=== PATIENT | male | born 1970 | race Caucasian/White ===

== ENCOUNTER → 2021-11-21 | Emergency (ER) | payer OTHER ==
[2021-11-21 14:05] VITALS: BP 128/75; PULSE 68; O2SAT 94
== END | disposition left against medical advice (07) ==
LOC: ED 13:50
DX: Z53.21 Procedure and treatment not carried out due to patient leaving prior to being seen by health care provider (principal)
CPT/HCPCS: 99283; G0463

== ENCOUNTER 2024-11-07 00:46 | Observation (INO) | payer OTHER ==
[2024-11-07] MEDS: TORAdol 30 mg Injection IM ONE (00:58)
--- NOTE | 2024-11-07 01:07 | ERPHSYRPT ---
- History of Present Illness Time Seen by Provider: 11/07/24 00:53 Source: patient, EMS Exam Limitations: no limitations Physician History: 54-year-old male with history of anxiety/depression, not taking any medications presented to the ER after tripped in his porch and fell on the left hip/femur with a popping sensation and patient reports he is pretty sure it is a femur fracture. Reports sharp shooting pain in the mid femur with minimal movements at the left hip and knee area. No numbness or tingling in the foot. Denies hitting his head. No loss of consciousness. Denies any chest pain, abdominal pain nausea vomiting. No injury anywhere else reported. Patient is not very cooperative and cursing at this MD and RN were trying to help him Allergies/Adverse Reactions: Penicillins Allergy (Verified 11/07/24 01:27) Hx Tetanus, Diphtheria Vaccination/Date Given: No Hx Influenza Vaccination/Date Given: No Hx Pneumococcal Vaccination/Date Given: No - Review of Systems Constitutional: No Symptoms Ears, Nose, & Throat: No Symptoms Respiratory: No Symptoms Cardiac: No Symptoms Abdominal/Gastrointestinal: No Symptoms Genitourinary Symptoms: No Symptoms Musculoskeletal: Fall, Injury, Joint Swelling Skin: No Symptoms Neurological: No Symptoms Psychological: Anxiety, Depression Hematologic/Lymphatic: No Symptoms Immunological/Allergic: No Symptoms - Past Medical History Pertinent Past Medical History: Yes Respiratory History: Sleep Apnea Musculoskeletal History: Fractures GI Medical History: Irritable Bowel Psycho-Social History: Anxiety, Depression Other Medical History: PTSD - Past Surgical History Past Surgical History: Yes Respiratory: Chest Surgery, Other Musculoskeletal: Orthopedic Surgery, Other Other Surgical History: carpal tunnel hung hands, left elbow, left tib/fib, left knee x 4, left ankle, right knee x 3. - Social History Smoking Status: Current every day smoker How long have you smoked: 30 Exposure to second hand smoke: No Drug Use: none Patient Lives Alone: Yes - Nursing Vital Signs Nursing Vital Signs: Initial Vital Signs Temperature 98.5 F 11/07/24 01:32 Pulse Rate 82 11/07/24 01:32 Respiratory Rate 18 11/07/24 01:32 Blood Pressure 118/72 11/07/24 01:32 O2 Sat by Pulse Oximetry 98 11/07/24 01:32 Pain Scale Pain Intensity 7 - Physical Exam General Appearance: no apparent distress Eyes, Ears, Nose, Throat Exam: normal ENT inspection Neck Exam: normal inspection, non-tender, supple, full range of motion Cardiovascular/Respiratory Exam: chest non-tender, normal breath sounds, regular rate/rhythm Gastrointestinal/Abdominal Exam: non-tender, soft, no organomegaly Hips Exam: right: non-tender, normal inspection, normal range of motion, no evidence of injury, left: bone tenderness, pain, soft tissue tenderness Legs Exam: left leg: pain, soft tissue tenderness, swelling Knees Exam: bilateral knee: non-tender, normal inspection, normal range of motion, no evidence of injury Neuro/Tendon Exam: normal sensation, normal motor functions Mental Status Exam: alert, oriented x 3, uncooperative Skin Exam: normal color SpO2 Interpretation: normal SpO2: 96 O2 Delivery: Room Air Ordered Tests: Medication Summary Discontinued Medications Generic Name Dose Route Start Last Admin Trade Name Freq PRN Reason Stop Dose Admin Acetaminophen 1,000 mg 11/07/24 10:22 11/07/24 11:01 Acetaminophen 500 Mg Tablet PO 11/07/24 10:23 1,000 mg STAT ONE Administration Acetaminophen 650 mg 11/08/24 14:08 Acetaminophen 325 Mg Tablet PO 12/08/24 14:07 Q6HPRN PRN POST OP PAIN Hydrocodone Bitart/Acetaminophen 1 tablet 11/07/24 05:19 11/09/24 15:51 Hydrocodone/Acetamin 10-325 Mg Tablet PO 11/12/24 05:18 1 tablet Q4H PRN PRN Administration PAIN Aspirin 81 mg 11/08/24 10:00 11/08/24 10:25 Aspirin 81 Mg Tablet.Ec PO 12/08/24 09:59 81 mg DAILY LAST Administration Aspirin 325 mg 11/09/24 10:00 11/09/24 09:38 Aspirin 325 Mg Tablet.Ec PO 12/09/24 09:59 325 mg DAILY LAST Administration Bupivacaine HCl Confirm 11/07/24 13:40 Bupivacaine Hcl/Pf 150 Mg/30 Ml Vial Administered 11/07/24 13:41 Dose 150 mg .ROUTE .STK-MED ONE Bupivacaine HCl/Epinephrine Bitart 50 ml 11/07/24 03:48 Bupivacaine Hcl/Epinephrine/Pf 10 Ml Vial SUBDERMAL 11/07/24 03:49 .STK-MED ONE Bupivacaine Liposome Confirm 11/07/24 13:41 Bupivacaine Liposome/Pf 133 Mg/10 Ml Administered 11/07/24 13:42 Dose 133 mg IJ .STK-MED ONE Celecoxib 200 mg 11/07/24 10:23 11/07/24 10:59 Celecoxib 100 Mg Capsule PO 11/07/24 10:24 200 mg STAT ONE Administration Dexamethasone 8 mg 11/07/24 10:22 11/07/24 10:59 Dexamethasone 4 Mg Tablet PO 11/07/24 10:23 8 mg STAT ONE Administration Dexamethasone Sodium Phosphate Confirm 11/07/24 13:43 Dexamethasone Sodium Phosphate 4 Mg/Ml Vial Administered 11/07/24 13:44 Dose 4 mg .ROUTE .STK-MED ONE Dexmedetomidine/Sodium Chloride Confirm 11/07/24 13:43 Dexmedetomidine In 0.9 % Nacl 80 Mcg/20 Ml Vial Administered 11/07/24 13:44 Dose 80 mcg IV .STK-MED ONE Ephedrine Sulfate Confirm 11/07/24 14:13 Ephedrine Sulfate 50 Mg/Ml Administered 11/07/24 14:14 Dose 50 mg .ROUTE .STK-MED ONE Famotidine 20 mg 11/07/24 10:23 11/07/24 11:00 Famotidine 20 Mg Tablet PO 11/07/24 10:24 20 mg STAT ONE Administration Fentanyl Citrate Confirm 11/07/24 13:43 Fentanyl Citrate 100 Mcg/2 Ml* Vial Administered 11/07/24 13:44 Dose 100 mcg .ROUTE .STK-MED ONE Fentanyl Citrate Confirm 11/07/24 14:35 Fentanyl Citrate 100 Mcg/2 Ml* Vial Administered 11/07/24 14:36 Dose 100 mcg .ROUTE .STK-MED ONE Fentanyl Citrate Confirm 11/07/24 17:56 Fentanyl Citrate 100 Mcg/2 Ml* Vial Administered 11/07/24 17:57 Dose 100 mcg .ROUTE .STK-MED ONE Gabapentin 600 mg 11/07/24 10:22 11/07/24 10:59 Gabapentin 300 Mg Capsule PO 11/07/24 10:23 600 mg STAT ONE Administration Heparin Sodium (Beef Lung) 5,000 unit 11/07/24 06:00 11/07/24 09:17 Heparin 5000 Units/0.5 Ml 5,000 Unit/0.5 Ml Syr SQ 12/07/24 05:59 Not Given Q8HT LAST Sodium Chloride 1,000 mls @ 999 mls/hr 11/07/24 00:53 11/07/24 03:06 Sodium Chloride 0.9% 1000 Ml IV 11/07/24 01:53 Infused .Q1H1M STA Infusion Sodium Chloride Confirm 11/07/24 01:54 Sodium Chloride 0.9% 1000 Ml Administered 11/07/24 01:55 Dose 1,000 mls @ ud .ROUTE .STK-MED ONE Doxycycline Hyclate 100 mg/ 100 mls @ 100 mls/hr 11/07/24 22:00 11/09/24 09:39 Dextrose IV 12/07/24 21:59 100 mls/hr Q12HT LAST Administration Lactated Ringer's 1,000 mls @ 0 mls/hr 11/07/24 10:30 Lactated Ringers IV 12/07/24 10:29 .Q0M LAST KVO Vancomycin HCl 1 gm in 200 mls @ 200 mls/hr 11/07/24 12:35 11/07/24 12:37 Vancomycin 1 Gram/200 Ml Bag IV 11/07/24 13:34 200 mls/hr ONCALLTOOR ONE Administration Lactated Ringer's Confirm 11/07/24 15:05 Lactated Ringers Administered 11/07/24 15:06 Dose 1,000 mls @ ud IV .STK-MED ONE Vancomycin HCl 1 gm in 200 mls @ 200 mls/hr 11/08/24 08:15 11/08/24 08:10 Vancomycin 1 Gram/200 Ml Bag IV 11/08/24 09:14 200 mls/hr ONCE ONE Administration Dextrose Confirm 11/08/24 10:17 D5w 100ml Mini Bag 100 Ml Administered 11/08/24 10:18 Dose 100 mls @ ud IV .STK-MED ONE Ibuprofen 600 mg 11/08/24 14:08 Ibuprofen 600 Mg Tablet PO 12/08/24 14:07 Q6HPRN PRN POST OP PAIN Ketamine HCl Confirm 11/07/24 14:36 Ketamine Hcl 50 Mg/Ml Administered 11/07/24 14:37 Dose 50 mg .ROUTE .STK-MED ONE Ketorolac Tromethamine Confirm 11/07/24 01:15 Ketorolac Tromethamine 30 Mg/Ml Inj Administered 11/07/24 01:16 Dose 30 mg .ROUTE .STK-MED ONE Ketorolac Tromethamine 30 mg 11/07/24 02:45 11/07/24 00:58 Ketorolac Tromethamine 30 Mg/Ml Inj IM 11/07/24 02:46 30 mg STAT ONE Administration Ketorolac Tromethamine 30 mg 11/07/24 05:19 11/07/24 05:41 Ketorolac Tromethamine 30 Mg/Ml Inj IV 30 mg Q6H PRN PRN Administration PAIN Ketorolac Tromethamine 30 mg 11/09/24 01:54 11/09/24 02:01 Ketorolac Tromethamine 30 Mg/Ml Inj IV 11/09/24 01:55 30 mg STAT ONE Administration Lidocaine HCl Confirm 11/07/24 13:41 Lidocaine Hcl 4 Ml Solution (Lta Kit) Administered 11/07/24 13:42 Dose 4 ml TP .STK-MED ONE Lidocaine HCl Confirm 11/07/24 13:43 Lidocaine - Mpf 2% 5 Ml Vial Administered 11/07/24 13:44 Dose 5 ml .ROUTE .STK-MED ONE Midazolam HCl Confirm 11/07/24 13:43 Midazolam Hcl 2 Mg/2 Ml Vial Administered 11/07/24 13:44 Dose 2 mg .ROUTE .STK-MED ONE Morphine Sulfate 4 mg 11/07/24 00:53 11/07/24 01:53 Morphine Sulfate 4 Mg/Ml Injection IV 11/07/24 00:54 Not Given STAT ONE Morphine Sulfate 4 mg 11/07/24 05:18 11/09/24 12:37 Morphine Sulfate 4 Mg/Ml Injection IV 11/12/24 05:17 4 mg Q4H PRN PRN Administration SEVERE PAIN Naloxone HCl 0.4 mg 11/08/24 07:35 Naloxone Hcl 0.4 Mg/Ml Ml IV 12/08/24 07:34 PRN PRN RESPIRATORY DEPRESSION Ondansetron HCl 4 mg 11/07/24 00:53 11/07/24 02:01 Ondansetron Hcl 4 Mg/2 Ml Vial IV 11/07/24 00:54 Not Given STAT ONE Ondansetron HCl Confirm 11/07/24 01:54 Ondansetron Hcl 4 Mg/2 Ml Vial Administered 11/07/24 01:55 Dose 4 mg .ROUTE .STK-MED ONE Ondansetron HCl Confirm 11/07/24 13:43 Ondansetron Hcl 4 Mg/2 Ml Vial Administered 11/07/24 13:44 Dose 4 mg .ROUTE .STK-MED ONE Ondansetron HCl Confirm 11/07/24 17:55 Ondansetron Hcl 4 Mg/2 Ml Vial Administered 11/07/24 17:56 Dose 4 mg .ROUTE .STK-MED ONE Phenylephrine HCl Confirm 11/07/24 14:23 Phenylephrine 10 Mg/Ml Vial Administered 11/07/24 14:24 Dose 10 mg .ROUTE .STK-MED ONE Potassium Chloride 40 meq 11/09/24 07:37 11/09/24 08:31 Potassium Chloride Tab 10 Meq Tab PO 11/09/24 07:38 40 meq STAT ONE Administration Prochlorperazine Edisylate 10 mg 11/07/24 09:54 11/09/24 12:45 Prochlorperazine Edisylate 10 Mg/2 Ml Vial IV 12/07/24 09:53 10 mg Q6H PRN PRN Administration NAUSEA/VOMITING Propofol Confirm 11/07/24 13:44 Propofol 200 Mg/20 Ml Vial Administered 11/07/24 13:45 Dose 200 mg IV .STK-MED ONE Rocuronium [place] Confirm 11/07/24 13:43 Rocuronium [place] 50 Mg/5 Ml Vial Administered 11/07/24 13:44 Dose 50 mg IV .STK-MED ONE Sugammadex Sodium Confirm 11/07/24 13:43 Sugammadex Sodium 200 Mg/2 Ml Vial Administered 11/07/24 13:44 Dose 200 mg IV .STK-MED ONE Temazepam 15 mg 11/08/24 20:55 11/08/24 21:08 Temazepam 15 Mg Capsule PO 12/08/24 20:54 15 mg HS PRN PRN Administration INSOMNIA Lab/Rad Data: Laboratory Result Diagrams 11/07/24 02:10 11/07/24 02:10 Laboratory Results 11/07/24 11/07/24 Range/Units 02:10 02:10 WBC 17.2 H (4.23-9.07) x10^3/uL RBC 4.08 L (4.63-6.08) x10^6/uL Hgb 13.2 L (13.7-17.5) g/dL Hct 39.0 L (40.1-51.0) % MCV 95.6 H (79.0-92.2) fL MCH 32.4 H (25.7-32.2) pg MCHC 33.8 (32.3-36.5) g/dL RDW 12.7 (11.6-14.4) % Plt Count 256 (163-337) x10^3/uL MPV 10.3 (9.4-12.4) fL Gran % 85.5 H (34.0-67.9) % Immature Gran % (Auto) 0.3 (0.001-0.429) % Nucleat RBC Rel Count 0.0 (0.00-0.2) % Eos # (Auto) 0.06 (0.04-0.54) x10^3/uL Immature Gran # (Auto) 0.06 H (0.001-0.031) x10^3u/L Absolute Lymphs (auto) 1.27 L (1.32-3.57) x10^3/uL Absolute Monos (auto) 1.06 H (0.30-0.82) x10^3/uL Absolute Nucleated RBC 0.00 (0.00-0.012) x10^3u/L Lymphocytes % 7.4 L (21.8-53.1) % Monocytes % 6.2 (5.3-12.2) % Eosinophils % 0.3 L (0.8-7.0) % Basophils % 0.3 (0.2-1.2) % Absolute Granulocytes 14.70 H (1.78-5.38) x10^3/uL Basophils # 0.05 (0.01-0.08) x10^3/uL Sodium 143 (135-145) mmol/L Potassium 3.6 (3.5-5.1) mmol/L Chloride 109 H (98-107) mmol/L Carbon Dioxide 20 L (22-30) mmol/L Anion Gap 16.7 H (5-15) MEQ/L BUN 15 (9-20) mg/dL Creatinine 0.74 (0.66-1.25) mg/dL Estimated GFR 107.0 ML/MIN Glucose 94 (74-106) mg/dL Calcium 8.9 (8.4-10.2) mg/dL Total Bilirubin 0.50 (0.2-1.3) mg/dL AST 52 (17-59) U/L ALT 29 (0-50) U/L Alkaline Phosphatase 71 (38-126) U/L Serum Total Protein 6.4 (6.3-8.2) g/dL Albumin 4.1 (3.5-5.0) g/dL Ethyl Alcohol 70 H (0-10) mg/dL - Progress Progress: pain not gone completely Progress Note: 11/07/24 02:01 54-year-old is evaluated in the ER for ground-level fall with injuries of the left hip and femur. Patient has intact distal neurovascular, no shortening or rotation, extremely painful movements at the left hip and proximal femur area. He is offered narcotics but patient does not want anything except Toradol. X-rays of right femur/hip showed spiral fracture from greater trochanteric reviewed by me with pending official reports. I have shared the x-ray imaging with Dr. Mijares orthopedickee on-call, recommended obtaining CT and admission to the hospitalist service. Will obtain baseline lab work. Patient has no injury anywhere else, discussed with Dr. Gayle washington, reviewed history, workup and agreed with admission. Complexity of problems addressed: High acuity Complexity of data reviewed/analyzed: Extensive Risk of complication: High risk Discussed with Dr.: Other (Dr. Clarence Mijares orthopedics and Dr. Araujo hospitalist) Counseled pt/family regarding: lab results, diagnosis, need for follow-up, rad results Medical Desision Making - Independent Historian Additional History obtained from: Bun Panner/EMT - Discussion of managment Care discussed with:: specialist Reviewed:: Test results, Need for additional workup Agreed on:: Treatment plan, place in obs Will see patient: in hospital - Diagnostic Testing Diagnostic test were ordered, analyzed, and reviewed by me: Yes Radiological Interpretation: Interpreted by me, Reviewed by me, Teleradiologist Report - Risk of complications The pt has a mod risk of morbidity or mortality based on: Need for prescription drug management The pt has a high risk of morbidity or mortality based on: Need for major surgery in patient with known risk factors, Decision regarding hospitilization or escalation of hosp level of care - Departure Departure Disposition: Observation Clinical Impression: Fracture, proximal femur Fall Qualifiers: Encounter type: initial encounter Qualified Code(s): W19.XXXA - Unspecified fall, initial encounter Condition: Stable Critical Care Time: No
[2024-11-07] MEDS ORDERED: TORAdol 30 mg Injection ONE (01:15)
[2024-11-07] MEDS: MORPHINE SULFATE 4 MG INJ IV ONE (01:53)
[2024-11-07] MEDS ORDERED: Zofran 4 MG/2 ML VIAL ONE ×3 (01:54→17:55)
[2024-11-07] MEDS ORDERED: Sodium Chloride 0.9% 1000 ML 1,000 ML ONE (01:54)
[2024-11-07] MEDS: Sodium Chloride 0.9% 1000 ML 1,000 ML IV STA (01:57)
[2024-11-07] MEDS: Zofran 4 MG/2 ML VIAL IV ONE (02:01)
[2024-11-07 02:15] LABS: BASOPHIL % 0.3 % (0.2-1.2); Basophil (Absolute #) 0.05 x10^3/uL (0.01-0.08); Eosinophil % 0.3 % (0.8-7.0); Eosinophil (Absolute #) 0.06 x10^3/uL (0.04-0.54); Hemoglobin 13.2 g/dL (13.7-17.5); IMMATURE GRAN # 0.06 x10^3u/L (0.001-0.031); IMMATURE GRAN % 0.3 % (0.001-0.429); Lymphocyte (Absolute #) 1.27 x10^3/uL (1.32-3.57); Lymphocytes % 7.4 % (21.8-53.1); Mean Cell Volume 95.6 fL (79.0-92.2); Mean Corpuscular Hemoglobin 32.4 pg (25.7-32.2); Mean Corpuscular Hgb Concent. 33.8 g/dL (32.3-36.5); Mean Platelet Volume 10.3 fL (9.4-12.4); Monocyte (Absolute #) 1.06 x10^3/uL (0.30-0.82); Monocytes % 6.2 % (5.3-12.2); Neutrophil % 85.5 % (34.0-67.9); Platelet Count 256 x10^3/uL (163-337); Red Blood Count 4.08 x10^6/uL (4.63-6.08); Red Cell Distribution Width 12.7 % (11.6-14.4); White Blood Count 17.2 x10^3/uL (4.23-9.07)
[2024-11-07 02:28] LABS: ALBUMIN 4.1 g/dL (3.5-5.0); ANION GAP 16.7 MEQ/L (5-15); BILIRUBIN,TOTAL 0.5 mg/dL (0.2-1.3); Calcium 8.9 mg/dL (8.4-10.2); Creatinine 1 0.74 mg/dL (0.66-1.25); Potassium 3.6 mmol/L (3.5-5.1); Total Protein 6.4 g/dL (6.3-8.2)
--- NOTE | 2024-11-07 03:39 | XRAY ---
CLINICAL HISTORY: Left hip and femur COMPARISON: None. TECHNIQUE: Contiguous axial CT images of left lower extremity were obtained without intravenous contrast. Coronal and sagittal reconstructions were likewise performed and indicated to increase the sensitivity for detecting clinically relevant pathology. CT scan was performed according to ALARA (as low as reasonable achievable). FINDINGS: Linear displaced fracture is noted at proximal metadiaphysis of left femur, involving neck and greater trochanter. Linear minimally displaced fracture is also noted involving anterior column /anterior ring of left acetabulum with fracture line extending to medial wall No destructive osseous lesion. The visualized muscles and tendons appear grossly unremarkable. No cortical destruction to suggest osteomyelitis. No abscess formation. No significant joint effusion. There are no soft tissue masses. Normal subcutaneous adipose space. IMPRESSION: 1. Linear displaced fracture is noted at proximal metadiaphysis of left femur, involving neck and greater trochanter. 2. Linear minimally displaced fracture is also noted involving anterior column/ anterior ring of left acetabulum with fracture line extending to medial wall Electronically Signed by: Benny Segura MD. (11/07/2024 03:35:46 EDT)
[2024-11-07] MEDS ORDERED: MARCAINE 0.25% PF/ EPI 1:200,000 SUBDERMAL ONE (03:48)
[2024-11-07 04:51] LABS: Appearance Clear (Clear); Bacteria None Seen /HPF (None Seen); Bilirubin Negative (Negative); Blood Small (Negative); Epithelial Cells None Seen /HPF (None Seen); Glucose, Urine Negative (Negative); Ketones Negative (Negative); Leukocyte Esterase Negative (Negative); Nitrite Negative (Negative); Protein,Urine Dip Trace (Negative); RBC 0-2 /HPF (0-5); Specific Gravity 1.015 (1.005-1.030); Urobilinogen 0.2 mg/dL (0.2); WBC 0-2 /HPF (0-5)
[2024-11-07 05:02] LABS: Amphetamine,Urine NEGATIVE (NEGATIVE); Barbiturate,Urine NEGATIVE (NEGATIVE); Benzodiazepine,Urine NEGATIVE (NEGATIVE); Cocaine,Urine NEGATIVE (NEGATIVE); Methadone,Urine NEGATIVE (NEGATIVE); Opiate,Urine NEGATIVE (NEGATIVE); PCP,Urine NEGATIVE (NEGATIVE); THC,Urine POSITIVE (NEGATIVE)
[2024-11-07] MEDS: TORAdol 30 mg Injection IV PRN (05:41)
--- NOTE | 2024-11-07 07:36 | PCM.HP ---
History of Present Illness - Chief Complaint Chief Complaint: Fall with hip pain Date: 11/07/24 History of Present Illness: 54-year-old man with a history of anxiety and depression, multiple prior fractures secondary to trauma, and prediabetes, who presents after a fall. He states that he was tripped by his dog and he fell four to six feet onto a stone onto his left leg. He presented with severe left hip pain, but then after he received Toradol, felt that he also had pain in his right ankle, right knee, and right elbow. He has pain with movement of the hip in any way, but no pain with movement of his right leg or right elbow. He is not currently on any medicati ons, and states he does not like opioids. He was told that he was prediabetic but he has lost a lot of weight since then. He does smoke one pack per day, and declined nicotine replacement. He has a family history of diabetes and heart disease. - Review of Systems All Other Systems: Reviewed and Negative Medications & Allergies Home Medications: Home Medication List No Reportable Medications [No Reported Medications] 11/07/24 [History Confirmed 11/07/24] Allergies/Adverse Reactions: Allergies Allergy/AdvReac Type Severity Reaction Status Date / Time Penicillins Allergy Verified 11/07/24 01:27 - Past Medical History Past Medical History: Yes Cardiac History: High Cholesterol Respiratory History: Sleep Apnea Endocrine Medical History: Diabetes Type II Musculoskelatal History: Fractures GI Medical History: Irritable Bowel Pyscho-Social History: Anxiety, Depression Comment: Complex PTSD - Past Surgical History Past Surgical History: Yes Respiratory Surgery: Chest Surgery, Other Musculskeletal Surgical Hx: Orthopedic Surgery, Other Other Surgical History: carpal tunnel hung hands, left elbow, left tib/fib, left knee x 4, left ankle, right knee x 3. inspire install, readjustment, and then removal Significant Family History: heart disease, diabetes - Social History Smoking Status: Current every day smoker (One pack per day) How long have you smoked: 30 Exposure to second hand smoke: Yes Alcohol: Rarely, Occasionally Drug Use: none - Social Determinants of Health Will the patient participate in the screening: Yes Do you worry about a steady place to live?: No Do you have any problems with any of the following?: No known problems In the past 12 months,have you had to go without utilities?: No Have you or anyone in your house had to go without enough: No Transportation Issues: No Has anyone in your support network made you feel unsafe?: No Does the patient want assistance with any of the above?: No - Physical Exam Vital Signs: Vital Signs - 24 hr Temp Pulse Resp BP BP Pulse Ox 11/07/24 03:59 99.4 F 80 18 115/77 95 11/07/24 03:05 90 18 112/60 97 11/07/24 02:31 87 17 114/63 96 11/07/24 02:03 96 11/07/24 02:00 88 17 108/77 98 11/07/24 01:32 98.5 F 82 18 118/72 98 Physical exam GENERAL: lying in bed in moderate distress from pain. HEENT: Normocephalic, atraumatic. Moist mucous membranes. EYES: Normal inspection, anicteric sclera, extraocular movements intact. NECK: Supple, full range of motion CV: Regular rate and rhythm, no murmurs, no gallops. No JVD or edema. PULM: clear to auscultation bilaterally, no work of breathing. On room air. ABD: Nondistended, nontender. MSK: Pain with any movement of the left hip. Bruising over the right elbow and knee but full range of motion. SKIN: No rashes, normal color. NEURO: Face symmetric, no focal motor or sensory deficits. PSYCH: Alert, oriented x3 Results - Labs Lab/Micro Results: Lab Results-Last 24 Hours 11/07/24 11/07/24 11/07/24 Range/Units 02:10 02:10 04:40 WBC 17.2 H (4.23-9.07) x10^3/uL RBC 4.08 L (4.63-6.08) x10^6/uL Hgb 13.2 L (13.7-17.5) g/dL Hct 39.0 L (40.1-51.0) % MCV 95.6 H (79.0-92.2) fL MCH 32.4 H (25.7-32.2) pg MCHC 33.8 (32.3-36.5) g/dL RDW 12.7 (11.6-14.4) % Plt Count 256 (163-337) x10^3/uL MPV 10.3 (9.4-12.4) fL Gran % 85.5 H (34.0-67.9) % Immature Gran % (Auto) 0.3 (0.001-0.429) % Nucleat RBC Rel Count 0.0 (0.00-0.2) % Eos # (Auto) 0.06 (0.04-0.54) x10^3/uL Immature Gran # (Auto) 0.06 H (0.001-0.031) x10^3u/L Absolute Lymphs (auto) 1.27 L (1.32-3.57) x10^3/uL Absolute Monos (auto) 1.06 H (0.30-0.82) x10^3/uL Absolute Nucleated RBC 0.00 (0.00-0.012) x10^3u/L Lymphocytes % 7.4 L (21.8-53.1) % Monocytes % 6.2 (5.3-12.2) % Eosinophils % 0.3 L (0.8-7.0) % Basophils % 0.3 (0.2-1.2) % Absolute Granulocytes 14.70 H (1.78-5.38) x10^3/uL Basophils # 0.05 (0.01-0.08) x10^3/uL Sodium 143 (135-145) mmol/L Potassium 3.6 (3.5-5.1) mmol/L Chloride 109 H (98-107) mmol/L Carbon Dioxide 20 L (22-30) mmol/L Anion Gap 16.7 H (5-15) MEQ/L BUN 15 (9-20) mg/dL Creatinine 0.74 (0.66-1.25) mg/dL Estimated GFR 107.0 ML/MIN Glucose 94 (74-106) mg/dL Hemoglobin A1c (4.5-6.0) % Calcium 8.9 (8.4-10.2) mg/dL Total Bilirubin 0.50 (0.2-1.3) mg/dL AST 52 (17-59) U/L ALT 29 (0-50) U/L Alkaline Phosphatase 71 (38-126) U/L Serum Total Protein 6.4 (6.3-8.2) g/dL Albumin 4.1 (3.5-5.0) g/dL Urine Color Yellow (Yellow) Urine Appearance Clear (Clear) Urine pH 5.0 (4.6-8.0) Ur Specific [place] 1.015 (1.005-1.030) Urine Protein Trace A (Negative) Urine Glucose (UA) Negative (Negative) mg/dL Urine Ketones Negative (Negative) Urine Blood Small A (Negative) Urine Nitrite Negative (Negative) Urine Bilirubin Negative (Negative) Urine Urobilinogen 0.2 (0.2) mg/dL Ur Leukocyte Esterase Negative (Negative) U Hyaline Cast (Auto) 6-10 A (0-2) /LPF Urine Microscopic RBC 0-2 (0-5) /HPF Urine Microscopic WBC 0-2 (0-5) /HPF Ur Epithelial Cells None Seen (None Seen) /HPF Urine Bacteria None Seen (None Seen) /HPF Urine Culture Reflexed NO (NO) Urine Opiates Level (NEGATIVE) Ur Methadone (NEGATIVE) Urine Barbiturates (NEGATIVE) Ur Phencyclidine (PCP) (NEGATIVE) Urine Amphetamine (NEGATIVE) U Benzodiazepine Level (NEGATIVE) Urine Cocaine (NEGATIVE) Urine Marijuana (THC) (NEGATIVE) Ethyl Alcohol 70 H (0-10) mg/dL 11/07/24 11/07/24 Range/Units 04:40 05:00 WBC (4.23-9.07) x10^3/uL RBC (4.63-6.08) x10^6/uL Hgb (13.7-17.5) g/dL Hct (40.1-51.0) % MCV (79.0-92.2) fL MCH (25.7-32.2) pg MCHC (32.3-36.5) g/dL RDW (11.6-14.4) % Plt Count (163-337) x10^3/uL MPV (9.4-12.4) fL Gran % (34.0-67.9) % Immature Gran % (Auto) (0.001-0.429) % Nucleat RBC Rel Count (0.00-0.2) % Eos # (Auto) (0.04-0.54) x10^3/uL Immature Gran # (Auto) (0.001-0.031) x10^3u/L Absolute Lymphs (auto) (1.32-3.57) x10^3/uL Absolute Monos (auto) (0.30-0.82) x10^3/uL Absolute Nucleated RBC (0.00-0.012) x10^3u/L Lymphocytes % (21.8-53.1) % Monocytes % (5.3-12.2) % Eosinophils % (0.8-7.0) % Basophils % (0.2-1.2) % Absolute Granulocytes (1.78-5.38) x10^3/uL Basophils # (0.01-0.08) x10^3/uL Sodium (135-145) mmol/L Potassium (3.5-5.1) mmol/L Chloride (98-107) mmol/L Carbon Dioxide (22-30) mmol/L Anion Gap (5-15) MEQ/L BUN (9-20) mg/dL Creatinine (0.66-1.25) mg/dL Estimated GFR ML/MIN Glucose (74-106) mg/dL Hemoglobin A1c 5.50 (4.5-6.0) % Calcium (8.4-10.2) mg/dL Total Bilirubin (0.2-1.3) mg/dL AST (17-59) U/L ALT (0-50) U/L Alkaline Phosphatase (38-126) U/L Serum Total Protein (6.3-8.2) g/dL Albumin (3.5-5.0) g/dL Urine Color (Yellow) Urine Appearance (Clear) Urine pH (4.6-8.0) Ur Specific [place] (1.005-1.030) Urine Protein (Negative) Urine Glucose (UA) (Negative) mg/dL Urine Ketones (Negative) Urine Blood (Negative) Urine Nitrite (Negative) Urine Bilirubin (Negative) Urine Urobilinogen (0.2) mg/dL Ur Leukocyte Esterase (Negative) U Hyaline Cast (Auto) (0-2) /LPF Urine Microscopic RBC (0-5) /HPF Urine Microscopic WBC (0-5) /HPF Ur Epithelial Cells (None Seen) /HPF Urine Bacteria (None Seen) /HPF Urine Culture Reflexed (NO) Urine Opiates Level NEGATIVE (NEGATIVE) Ur Methadone NEGATIVE (NEGATIVE) Urine Barbiturates NEGATIVE (NEGATIVE) Ur Phencyclidine (PCP) NEGATIVE (NEGATIVE) Urine Amphetamine NEGATIVE (NEGATIVE) U Benzodiazepine Level NEGATIVE (NEGATIVE) Urine Cocaine NEGATIVE (NEGATIVE) Urine Marijuana (THC) POSITIVE A (NEGATIVE) Ethyl Alcohol (0-10) mg/dL - Radiology Impressions Radiology Exams & Impressions: Radiology Procedures Category Date Time Status FEMUR Stat Exams 11/07/24 00:54 Taken HIP UNI (2V) INCL PEL IF DONE Stat Exams 11/07/24 00:54 Taken KNEE (3 VIEWS) Stat Exams 11/07/24 02:35 Taken LOWER EXTREMITY WO CONTRAST [CT] Stat Exams 11/07/24 01:[address] of the left leg - linear displaced fracture at the proximal metadiaphysis of the left femur involving the neck and greater trochanter. Also a linear minimally displaced fracture involving the anterior column/anterior ring of the left acetabulum with fracture line extending to the medial wall. Plain film x-ray of femur, hip, and right knee have been performed but results are not yet available. Assessment/Plan (1) Fracture, proximal femur Current Visit: Yes Status: Acute Assessment & Plan: 54-year-old man with a history of anxiety and depression, not currently on medication, who presents with a left femur fracture after a fall. ## Left femur fracture - after a 5-foot fall. Complex fracture, as noted in CT results as above. - Orthopedics consulted, will see patient in the morning - NPO - P.r.n. Toradol, with transition to p.r.n. morphine and [place] when no longer able to receive further doses - Bed rest, nonweightbearing ## leukocytosis - No signs of infection. Possibly a stress response to the fall. - Repeat CBC in the morning, trend results ## tobacco dependence - patient smokes one pack per day. He declined nicotine patch placement while in the hospital. - Trust Accounts Supervisor on smoking cessation Code status: DNR Prophylaxis: Subcutaneous heparin Diet: NPO Dispo: Place in observation Entirety of encounter took place via live audio/video telemedicine device, with remote physician and patient in hospital, with the assistance of the bedside nurse. Hector Randall MD Telemedicine Hospitalist [facility] 11/07/2024 7:35 AM Code(s): S72.009A - FRACTURE OF UNSP PART OF NECK OF UNSP FEMUR, INIT Telemedicine Encounter - Telemedicine Encounter Telemedicine Encounter: "The entirety of this encounter was performed via Telemedicine" This visit was performed using real-time audio and video connection between my location and thepatients locationwith the assistance of a surrogateat the patients location. Written or verbal consent was obtained from the patient/guardian to perform this visit [facility]. Any patient questions regarding the telemedicine interaction were answered.
--- NOTE | 2024-11-07 09:03 | XRAY ---
Indication: Status post fall. Comparison: None AP pelvis and 2 view left hip demonstrates moderately displaced oblique left intratrochanteric fracture. No other bony, articular, or soft tissue abnormalities.
--- NOTE | 2024-11-07 09:05 | XRAY ---
Indication: Status post fall. Pain. Comparison: None 3 view right knee demonstrates 3 mm distal femur shaft bone cyst. No other bony, articular, or soft tissue abnormalities.
--- NOTE | 2024-11-07 09:05 | XRAY ---
Indication: Status post fall. Comparison: None 2 view left femur demonstrates moderately displaced oblique intratrochanteric fracture. Incidental prior ACL reconstruction. No other bony, articular, or soft tissue abnormalities.
[2024-11-07] MEDS: HEPARIN 5000 UNITS/0.5 ML (HIGH RISK MED) SQ SCH (09:17)
[2024-11-07] MEDS: MORPHINE SULFATE 4 MG INJ IV PRN (10:11)
[2024-11-07] MEDS: Compazine 10 MG/2 ML IV PRN (10:11)
[2024-11-07] MEDS ORDERED: Lactated Ringers 1,000 ML IV SCH (10:30)
[2024-11-07] MEDS: NEURONTIN PO ONE (10:59)
[2024-11-07] MEDS: celeBREX 100 MG PO ONE (10:59)
[2024-11-07] MEDS: Decadron 4 MG PO ONE (10:59)
[2024-11-07] MEDS: Pepcid 20 MG PO ONE (11:00)
[2024-11-07] MEDS: TYLENOL EXTRA STRENGTH 500 MG PO ONE (11:01)
[2024-11-07] MEDS ORDERED: VANCOCIN INJECTION*** 1 GM in Sodium Chloride 0.9% 250 ML 250 ML IV ONE (12:30)
[2024-11-07] MEDS: VANCOMYCIN 1 GRAM/200 ML BAG 1 GM/200 ML PIGGYBACK IV ONE (12:37)
[2024-11-07] MEDS ORDERED: Marcaine Mpf 0.5% Vial 30 Ml ONE (13:40)
[2024-11-07] MEDS ORDERED: Pre-Attached Lta Kit TP ONE (13:41)
[2024-11-07] MEDS ORDERED: EXPAREL 133 MG/10 ML VIAL IJ ONE (13:41)
[2024-11-07] MEDS ORDERED: ROCURONIUM BROMIDE IV ONE (13:43)
[2024-11-07] MEDS ORDERED: DEXMEDETOMIDINE 80 MCG/20ML-NS IV ONE (13:43)
[2024-11-07] MEDS ORDERED: Xylocaine-Mpf 2% 5 Ml Vial ONE (13:43)
[2024-11-07] MEDS ORDERED: SUBLIMAZE 100 MCG/2 ML ONE ×3 (13:43→17:56)
[2024-11-07] MEDS ORDERED: Versed 2 MG/2 ML Injection ONE (13:43)
[2024-11-07] MEDS ORDERED: BRIDION 200MG/2ML IV ONE (13:43)
[2024-11-07] MEDS ORDERED: dexAMETHasone sodium phosphate ONE (13:43)
[2024-11-07] MEDS ORDERED: propofoL IV ONE (13:44)
[2024-11-07] MEDS ORDERED: Ephedrine Sulfate 50 MG/ML ONE (14:13)
[2024-11-07] MEDS ORDERED: PHENYLEPHRINE HCL ONE (14:23)
[2024-11-07] MEDS ORDERED: Ketamine HCl 50 MG/ML ONE (14:36)
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
[2024-11-07] MEDS ORDERED: Lactated Ringers 1,000 ML IV ONE (15:05)
--- NOTE | 2024-11-07 16:40 | XRAY ---
Indication: Left hip ORIF surgery. Intraoperative fluoroscopy provided for 2 minutes 10 seconds. 28 digital spot images submitted for interpretation ultimately demonstrates gamma nail, multiple transverse screws, and orthopedic K wires fixating intertrochanteric fracture. Fracture apposition/alignment improved compared to same day left hip radiograph. Correlate with intraoperative findings/report.
[2024-11-07 18:55] LABS: Hematocrit 35.9 % (40.1-51.0)
[2024-11-07] MEDS ORDERED: VANCOMYCIN 1 GRAM/200 ML BAG 1 GM/200 ML PIGGYBACK IV SCH (22:00)
[2024-11-07] MEDS: VIBRAMYCIN 100 MG*** 100 MG in D5w 100ML Mini Bag 100 ML 100 ML IV SCH (22:16)
[2024-11-08 06:26] LABS: Appearance Clear (Clear); Bacteria None Seen /HPF (None Seen); Bilirubin Negative (Negative); Blood Negative (Negative); Epithelial Cells None Seen /HPF (None Seen); Glucose, Urine Negative (Negative); Hyaline Casts NONE SEEN /LPF (0-2); Ketones Trace (Negative); Leukocyte Esterase Negative (Negative); Nitrite Negative (Negative); Ph 5.5 (4.6-8.0); Protein,Urine Dip Trace (Negative); RBC 0-2 /HPF (0-5); Specific Gravity >=1.030 (1.005-1.030); Urobilinogen 0.2 mg/dL (0.2); WBC 0-2 /HPF (0-5)
[2024-11-08] MEDS ORDERED: Narcan 0.4 MG/ML IV PRN (07:35)
[2024-11-08] MEDS: VANCOMYCIN 1 GRAM/200 ML BAG 1 GM/200 ML PIGGYBACK IV ONE (08:10)
--- NOTE | 2024-11-08 09:46 | PCM.NOTE ---
Date and Time: 11/08/24939 Subjective Assessment: Postoperative day 1 left hip ORIF Patient reports no significant pain at this time. He states that his leg was numb all night and he could move it but this is wearing off and he cannot move his ankle. Objective Exam Wound Assessment: Skin/Wound Assessment Wound/Incision Assessment Start: 11/07/24 17:50 Text: Status: Active Freq: Q6H Protocol: Document 11/08/24 06:00 MP (Rec: 11/08/24 06:08 MP [id number]) Wound/Incision Assessment Left Upper Hip Wound Assessment Shift Assessment Wound Stage Non Pressure Wound Dressing Status Dry & Intact Drainage Amount None Comment Post op drsg in place, dry and intact, no shadowing noted Wound Photo Photo Taken No Extremity Exam: other Comments: 11/08/24 09:41 Exam The patient is awake alert and oriented, he has no new complaints He can move all extremities. His left lower extremity exam reveals no tenderness or swelling below the knee. The left hip incision has a dressing in place that is clean dry and intact. There is no sign of active drainage. No significant bruising noted. Objective Data Vital Signs: Vital Signs - 24 hr Temp Pulse Resp BP BP Pulse Ox 11/08/24 07:55 99.1 F 65 20 120/56 93 L 11/08/24 04:00 98.4 F 65 16 113/58 94 L 11/08/24 03:15 98.4 F 70 20 113/58 96 11/08/24 00:00 98.9 F 81 16 130/75 96 11/07/24 23:15 98.9 F 81 16 117/63 96 11/07/24 22:15 98.9 F 81 16 117/63 96 11/07/24 21:15 98.2 F 63 20 130/75 93 L 11/07/24 20:45 98.2 F 63 20 130/75 93 L 11/07/24 20:15 98.2 F 71 18 96 11/07/24 20:00 98.4 F 81 18 117/63 94 L 11/07/24 19:45 98.4 F 67 18 144/67 95 11/07/24 19:15 98.7 F 70 20 131/62 96 11/07/24 19:00 98.4 F 72 20 130/75 96 11/07/24 12:53 98.5 F 58 L 18 127/61 93 L 11/07/24 12:00 98.5 F 58 L 18 127/61 93 L Pain Assessment - Last Documented Pain Intensity 8 Pain Scale Used 0-10 Pain Scale Intake and Output: Intake & Output 11/05/24 11/06/24 11/07/24 11/08/24 11:59 11:59 11:59 11:59 Intake Total 0 240 Output Total 850 Balance 0 -610 Weight 68.8 kg 68.8 kg Lab Results: Lab Results-Last 24 Hours 11/07/24 11/07/24 11/08/24 Range/Units 18:50 20:03 06:12 Hgb 12.0 L (13.7-17.5) g/dL Hct 35.9 L (40.1-51.0) % POC Glucometer 140 H (74 to 106) mg/dL Urine Color Yellow (Yellow) Urine Appearance Clear (Clear) Urine pH 5.5 (4.6-8.0) Ur Specific [place] >=1.030 A (1.005-1.030) Urine Protein Trace A (Negative) Urine Glucose (UA) Negative (Negative) mg/dL Urine Ketones Trace A (Negative) Urine Blood Negative (Negative) Urine Nitrite Negative (Negative) Urine Bilirubin Negative (Negative) Urine Urobilinogen 0.2 (0.2) mg/dL Ur Leukocyte Esterase Negative (Negative) U Hyaline Cast (Auto) NONE SEEN (0-2) /LPF Urine Microscopic RBC 0-2 (0-5) /HPF Urine Microscopic WBC 0-2 (0-5) /HPF Ur Epithelial Cells None Seen (None Seen) /HPF Urine Bacteria None Seen (None Seen) /HPF Urine Culture Reflexed NO (NO) Radiology Exams: Radiology Procedures Category Date Time Status FEMUR Stat Exams 11/07/24 00:54 Completed FLUOROSCOPY UP TO 1 HR Routine Exams 11/07/24 09:37 Taken HIP UNI (2V) INCL PEL IF DONE Routine Exams 11/07/24 09:37 Completed HIP UNI (2V) INCL PEL IF DONE Stat Exams 11/07/24 00:54 Completed KNEE (3 VIEWS) Stat Exams 11/07/24 02:35 Completed LOWER EXTREMITY WO CONTRAST [CT] Stat Exams 11/07/24 01:58 Completed Medications: Medications Generic Name Dose Route Start Last Admin Trade Name Freq PRN Reason Stop Dose Admin Hydrocodone Bitart/Acetaminophen 1 tablet 11/07/24 05:19 Hydrocodone/Acetamin 10-325 Mg Tablet PO 11/12/24 05:18 Q4H PRN PRN PAIN Doxycycline Hyclate 100 mg/ 100 mls @ 100 mls/hr 11/07/24 22:00 11/07/24 22:16 Dextrose IV 12/07/24 21:59 100 mls/hr Q12HT LAST Administration Lactated Ringer's 1,000 mls @ 0 mls/hr 11/07/24 10:30 Lactated Ringers IV 12/07/24 10:29 .Q0M LAST KVO Ketorolac Tromethamine 30 mg 11/07/24 05:19 11/07/24 05:41 Ketorolac Tromethamine 30 Mg/Ml Inj IV 30 mg Q6H PRN PRN Administration PAIN Morphine Sulfate 4 mg 11/07/24 05:18 11/08/24 08:00 Morphine Sulfate 4 Mg/Ml Injection IV 11/12/24 05:17 4 mg Q4H PRN PRN Administration SEVERE PAIN Naloxone HCl 0.4 mg 11/08/24 07:35 Naloxone Hcl 0.4 Mg/Ml Ml IV 12/08/24 07:34 PRN PRN RESPIRATORY DEPRESSION Prochlorperazine Edisylate 10 mg 11/07/24 09:54 11/08/24 07:56 Prochlorperazine Edisylate 10 Mg/2 Ml Vial IV 12/07/24 09:53 10 mg Q6H PRN PRN Administration NAUSEA/VOMITING Discontinued Medications Generic Name Dose Route Start Last Admin Trade Name Ning PRN Reason Stop Dose Admin Acetaminophen 1,000 mg 11/07/24 10:22 11/07/24 11:01 Acetaminophen 500 Mg Tablet PO 11/07/24 10:23 1,000 mg STAT ONE Administration Bupivacaine HCl Confirm 11/07/24 13:40 Bupivacaine Hcl/Pf 150 Mg/30 Ml Vial Administered 11/07/24 13:41 Dose 150 mg .ROUTE .STK-MED ONE Bupivacaine HCl/Epinephrine Bitart 50 ml 11/07/24 03:48 Bupivacaine Hcl/Epinephrine/Pf 10 Ml Vial SUBDERMAL 11/07/24 03:49 .STK-MED ONE Bupivacaine Liposome Confirm 11/07/24 13:41 Bupivacaine Liposome/Pf 133 Mg/10 Ml Administered 11/07/24 13:42 Dose 133 mg IJ .STK-MED ONE Celecoxib 200 mg 11/07/24 10:23 11/07/24 10:59 Celecoxib 100 Mg Capsule PO 11/07/24 10:24 200 mg STAT ONE Administration Dexamethasone 8 mg 11/07/24 10:22 11/07/24 10:59 Dexamethasone 4 Mg Tablet PO 11/07/24 10:23 8 mg STAT ONE Administration Dexamethasone Sodium Phosphate Confirm 11/07/24 13:43 Dexamethasone Sodium Phosphate 4 Mg/Ml Vial Administered 11/07/24 13:44 Dose 4 mg .ROUTE .STK-MED ONE Dexmedetomidine/Sodium Chloride Confirm 11/07/24 13:43 Dexmedetomidine In 0.9 % Nacl 80 Mcg/20 Ml Vial Administered 11/07/24 13:44 Dose 80 mcg IV .STK-MED ONE Ephedrine Sulfate Confirm 11/07/24 14:13 Ephedrine Sulfate 50 Mg/Ml Administered 11/07/24 14:14 Dose 50 mg .ROUTE .STK-MED ONE Famotidine 20 mg 11/07/24 10:23 11/07/24 11:00 Famotidine 20 Mg Tablet PO 11/07/24 10:24 20 mg STAT ONE Administration Fentanyl Citrate Confirm 11/07/24 13:43 Fentanyl Citrate 100 Mcg/2 Ml* Vial Administered 11/07/24 13:44 Dose 100 mcg .ROUTE .STK-MED ONE Fentanyl Citrate Confirm 11/07/24 14:35 Fentanyl Citrate 100 Mcg/2 Ml* Vial Administered 11/07/24 14:36 Dose 100 mcg .ROUTE .STK-MED ONE Fentanyl Citrate Confirm 11/07/24 17:56 Fentanyl Citrate 100 Mcg/2 Ml* Vial Administered 11/07/24 17:57 Dose 100 mcg .ROUTE .STK-MED ONE Gabapentin 600 mg 11/07/24 10:22 11/07/24 10:59 Gabapentin 300 Mg Capsule PO 11/07/24 10:23 600 mg STAT ONE Administration Heparin Sodium (Beef Lung) 5,000 unit 11/07/24 06:00 11/07/24 09:17 Heparin 5000 Units/0.5 Ml 5,000 Unit/0.5 Ml Syr SQ 12/07/24 05:59 Not Given Q8HT LAST Sodium Chloride 1,000 mls @ 999 mls/hr 11/07/24 00:53 11/07/24 03:06 Sodium Chloride 0.9% 1000 Ml IV 11/07/24 01:53 Infused .Q1H1M STA Infusion Sodium Chloride Confirm 11/07/24 01:54 Sodium Chloride 0.9% 1000 Ml Administered 11/07/24 01:55 Dose 1,000 mls @ ud .ROUTE .STK-MED ONE Vancomycin HCl 1 gm in 200 mls @ 200 mls/hr 11/07/24 12:35 11/07/24 12:37 Vancomycin 1 Gram/200 Ml Bag IV 11/07/24 13:34 200 mls/hr ONCALLTOOR ONE Administration Lactated Ringer's Confirm 11/07/24 15:05 Lactated Ringers Administered 11/07/24 15:06 Dose 1,000 mls @ ud IV .STK-MED ONE Vancomycin HCl 1 gm in 200 mls @ 200 mls/hr 11/08/24 08:15 11/08/24 08:10 Vancomycin 1 Gram/200 Ml Bag IV 11/08/24 09:14 200 mls/hr ONCE ONE Administration Ketamine HCl Confirm 11/07/24 14:36 Ketamine Hcl 50 Mg/Ml Administered 11/07/24 14:37 Dose 50 mg .ROUTE .STK-MED ONE Ketorolac Tromethamine Confirm 11/07/24 01:15 Ketorolac Tromethamine 30 Mg/Ml Inj Administered 11/07/24 01:16 Dose 30 mg .ROUTE .STK-MED ONE Ketorolac Tromethamine 30 mg 11/07/24 02:45 11/07/24 00:58 Ketorolac Tromethamine 30 Mg/Ml Inj IM 11/07/24 02:46 30 mg STAT ONE Administration Lidocaine HCl Confirm 11/07/24 13:41 Lidocaine Hcl 4 Ml Solution (Lta Kit) Administered 11/07/24 13:42 Dose 4 ml TP .STK-MED ONE Lidocaine HCl Confirm 11/07/24 13:43 Lidocaine - Mpf 2% 5 Ml Vial Administered 11/07/24 13:44 Dose 5 ml .ROUTE .STK-MED ONE Midazolam HCl Confirm 11/07/24 13:43 Midazolam Hcl 2 Mg/2 Ml Vial Administered 11/07/24 13:44 Dose 2 mg .ROUTE .STK-MED ONE Morphine Sulfate 4 mg 11/07/24 00:53 11/07/24 01:53 Morphine Sulfate 4 Mg/Ml Injection IV 11/07/24 00:54 Not Given STAT ONE Ondansetron HCl 4 mg 11/07/24 00:53 11/07/24 02:01 Ondansetron Hcl 4 Mg/2 Ml Vial IV 11/07/24 00:54 Not Given STAT ONE Ondansetron HCl Confirm 11/07/24 01:54 Ondansetron Hcl 4 Mg/2 Ml Vial Administered 11/07/24 01:55 Dose 4 mg .ROUTE .STK-MED ONE Ondansetron HCl Confirm 11/07/24 13:43 Ondansetron Hcl 4 Mg/2 Ml Vial Administered 11/07/24 13:44 Dose 4 mg .ROUTE .STK-MED ONE Ondansetron HCl Confirm 11/07/24 17:55 Ondansetron Hcl 4 Mg/2 Ml Vial Administered 11/07/24 17:56 Dose 4 mg .ROUTE .STK-MED ONE Phenylephrine HCl Confirm 11/07/24 14:23 Phenylephrine 10 Mg/Ml Vial Administered 11/07/24 14:24 Dose 10 mg .ROUTE .STK-MED ONE Propofol Confirm 11/07/24 13:44 Propofol 200 Mg/20 Ml Vial Administered 11/07/24 13:45 Dose 200 mg IV .STK-MED ONE Rocuronium [place] Confirm 11/07/24 13:43 Rocuronium [place] 50 Mg/5 Ml Vial Administered 11/07/24 13:44 Dose 50 mg IV .STK-MED ONE Sugammadex Sodium Confirm 11/07/24 13:43 Sugammadex Sodium 200 Mg/2 Ml Vial Administered 11/07/24 13:44 Dose 200 mg IV .STK-MED ONE Multi-Disciplinary Progress Notes: Multi-Disciplinary Progress Notes 11/08/24 06:11 Respiratory Note by Sulaiman Hooper PT NOW ON SCO FOR INCENTIVE SPIROMETRY. PT FELT COMFORTABLE AND DEMONSTRATED UNDERSTANDING WITH DEVICE. Initialized on 11/08/24 06:11 - END OF NOTE Assessment/Plan (1) Fracture, proximal femur Current Visit: Yes Status: Acute Assessment & Plan: 1. Left hip fracture He is status post ORIF, no complaints, the fracture is now stabilized he may initiate physical therapy, toe-touch weightbearing 2. Follow hemoglobin 3. Discharge disposition, anticipate discharge to home in 48 hours depending on progress with physical therapy. 4. [place] left hip will need to be removed on postoperative day 14. If he is receiving home health care, they can be removed at home, otherwise he will need an appointment in the Ortho clinic. Code(s): S72.009A - FRACTURE OF UNSP PART OF NECK OF UNSP FEMUR, INIT
--- NOTE | 2024-11-08 09:52 | PCM.NOTE ---
Date and Time: 11/08/24 0942 Subjective Assessment: 11/08/24 The patient is a 54-year-old male with a history of anxiety, depression, multiple prior fractures due to trauma, and prediabetes who presented to the ED on 11/07/24 following a fall. He reported being tripped by his dog and falling approximately 46 feet onto stone, landing on his left leg. He initially presented with severe left hip pain and, after receiving Toradol, also noted discomfort in his right ankle, right knee, and right elbow. However, he has no pain with movement in the right leg or elbow; pain is localized to the left hip with any motion. He is not currently on any medications and prefers to avoid opioids. He has a history of prediabetes but reports significant weight loss since diagnosis. He smokes one pack per day and declined nicotine replacement. Family history is notable for diabetes and heart disease. The patient refused labs today, stating he does not like being poked. He had an elevated WBC and fever yesterday, with a recent ER visit to [facility] for a suspected tooth infection. While no active dental infection was noted, he does have dental caries. He also mentioned recent mushroom hunting with multiple tick exposures. He was started on doxycycline and is currently receiving Vancomycin and Vibramycin after missing a dose yesterday, which nursing staff is addressing with catch-up dosing. Today, his pain is well controlled, and he has mild right knee edema, but no other acute concerns. He will work with physical therapy, and per orthopedics, he is to follow up in two weeks for staple removal and again in four weeks for repeat imaging. He will also begin daily aspirin as part of his ongoing care plan. - Review of Systems Constitutional: No Fever, No Chills Eyes: No Symptoms Ears, Nose, & Throat: No Symptoms Respiratory: No Cough, No Short Of Breath Cardiac: No Chest Pain, No Edema, No Syncope Abdominal/Gastrointestinal: No Abdominal Pain, No Nausea, No Vomiting, No Diarrhea Genitourinary Symptoms: No Dysuria Musculoskeletal: Joint Pain (right knee swelling), No Back Pain, No Neck Pain Skin: No Rash Neurological: No Dizziness, No Focal Weakness, No Sensory Changes Psychological: No Symptoms Endocrine: No Symptoms Hematologic/Lymphatic: No Symptoms Immunological/Allergic: No Symptoms Objective Exam General Appearance: no apparent distress, alert Neurologic Exam: alert, oriented x 3, cooperative, normal mood/affect, nml cerebellar function, sensation nml, motor weakness, No motor deficits Skin Exam: normal color, warm, dry Wound Assessment: Skin/Wound Assessment Wound/Incision Assessment Start: 11/07/24 17:50 Text: Status: Active Freq: Q6H Protocol: Document 11/08/24 06:00 MP (Rec: 11/08/24 06:08 MP [id number]) Wound/Incision Assessment Left Upper Hip Wound Assessment Shift Assessment Wound Stage Non Pressure Wound Dressing Status Dry & Intact Drainage Amount None Comment Post op drsg in place, dry and intact, no shadowing noted Wound Photo Photo Taken No Eye Exam: PERRL, EOMI, eyes nml inspection Ears, Nose, Throat Exam: normal ENT inspection, pharynx normal, moist mucous membranes Neck Exam: normal inspection, non-tender, supple, full range of motion Respiratory Exam: normal breath sounds, lungs clear, No respiratory distress Cardiovascular Exam: regular rate/rhythm, normal heart sounds Gastrointestinal/Abdomen Exam: soft, No tenderness, No mass Extremity Exam: normal inspection, normal range of motion, joint swelling (right knee) Back Exam: normal inspection, normal range of motion, No CVA tenderness, No vertebral tenderness Male Genitalia Exam: deferred Rectal Exam: deferred Objective Data Vital Signs: Vital Signs - 24 hr Temp Pulse Resp BP BP Pulse Ox 11/08/24 07:55 99.1 F 65 20 120/56 93 L 11/08/24 04:00 98.4 F 65 16 113/58 94 L 11/08/24 03:15 98.4 F 70 20 113/58 96 11/08/24 00:00 98.9 F 81 16 130/75 96 11/07/24 23:15 98.9 F 81 16 117/63 96 11/07/24 22:15 98.9 F 81 16 117/63 96 11/07/24 21:15 98.2 F 63 20 130/75 93 L 11/07/24 20:45 98.2 F 63 20 130/75 93 L 11/07/24 20:15 98.2 F 71 18 96 11/07/24 20:00 98.4 F 81 18 117/63 94 L 11/07/24 19:45 98.4 F 67 18 144/67 95 11/07/24 19:15 98.7 F 70 20 131/62 96 11/07/24 19:00 98.4 F 72 20 130/75 96 11/07/24 12:53 98.5 F 58 L 18 127/61 93 L 11/07/24 12:00 98.5 F 58 L 18 127/61 93 L Pain Assessment - Last Documented Pain Intensity 8 Pain Scale Used 0-10 Pain Scale Intake and Output: Intake & Output 11/05/24 11/06/24 11/07/24 11/08/24 11:59 11:59 11:59 11:59 Intake Total 0 240 Output Total 850 Balance 0 -610 Weight 68.8 kg 68.8 kg Lab Results: Lab Results-Last 24 Hours 11/07/24 11/07/24 11/08/24 Range/Units 18:50 20:03 06:12 Hgb 12.0 L (13.7-17.5) g/dL Hct 35.9 L (40.1-51.0) % POC Glucometer 140 H (74 to 106) mg/dL Urine Color Yellow (Yellow) Urine Appearance Clear (Clear) Urine pH 5.5 (4.6-8.0) Ur Specific [place] >=1.030 A (1.005-1.030) Urine Protein Trace A (Negative) Urine Glucose (UA) Negative (Negative) mg/dL Urine Ketones Trace A (Negative) Urine Blood Negative (Negative) Urine Nitrite Negative (Negative) Urine Bilirubin Negative (Negative) Urine Urobilinogen 0.2 (0.2) mg/dL Ur Leukocyte Esterase Negative (Negative) U Hyaline Cast (Auto) NONE SEEN (0-2) /LPF Urine Microscopic RBC 0-2 (0-5) /HPF Urine Microscopic WBC 0-2 (0-5) /HPF Ur Epithelial Cells None Seen (None Seen) /HPF Urine Bacteria None Seen (None Seen) /HPF Urine Culture Reflexed NO (NO) Radiology Exams: Radiology Procedures Category Date Time Status FEMUR Stat Exams 11/07/24 00:54 Completed FLUOROSCOPY UP TO 1 HR Routine Exams 11/07/24 09:37 Taken HIP UNI (2V) INCL PEL IF DONE Routine Exams 11/07/24 09:37 Completed HIP UNI (2V) INCL PEL IF DONE Stat Exams 11/07/24 00:54 Completed KNEE (3 VIEWS) Stat Exams 11/07/24 02:35 Completed LOWER EXTREMITY WO CONTRAST [CT] Stat Exams 11/07/24 01:58 Completed Medications: Medications Generic Name Dose Route Start Last Admin Trade Name Ning PRN Reason Stop Dose Admin Hydrocodone Bitart/Acetaminophen 1 tablet 11/07/24 05:19 Hydrocodone/Acetamin 10-325 Mg Tablet PO 11/12/24 05:18 Q4H PRN PRN PAIN Doxycycline Hyclate 100 mg/ 100 mls @ 100 mls/hr 11/07/24 22:00 11/07/24 22:16 Dextrose IV 12/07/24 21:59 100 mls/hr Q12HT LAST Administration Lactated Ringer's 1,000 mls @ 0 mls/hr 11/07/24 10:30 Lactated Ringers IV 12/07/24 10:29 .Q0M LAST KVO Ketorolac Tromethamine 30 mg 11/07/24 05:19 11/07/24 05:41 Ketorolac Tromethamine 30 Mg/Ml Inj IV 30 mg Q6H PRN PRN Administration PAIN Morphine Sulfate 4 mg 11/07/24 05:18 11/08/24 08:00 Morphine Sulfate 4 Mg/Ml Injection IV 11/12/24 05:17 4 mg Q4H PRN PRN Administration SEVERE PAIN Naloxone HCl 0.4 mg 11/08/24 07:35 Naloxone Hcl 0.4 Mg/Ml Ml IV 12/08/24 07:34 PRN PRN RESPIRATORY DEPRESSION Prochlorperazine Edisylate 10 mg 11/07/24 09:54 11/08/24 07:56 Prochlorperazine Edisylate 10 Mg/2 Ml Vial IV 12/07/24 09:53 10 mg Q6H PRN PRN Administration NAUSEA/VOMITING Discontinued Medications Generic Name Dose Route Start Last Admin Trade Name Ning PRN Reason Stop Dose Admin Acetaminophen 1,000 mg 11/07/24 10:22 11/07/24 11:01 Acetaminophen 500 Mg Tablet PO 11/07/24 10:23 1,000 mg STAT ONE Administration Bupivacaine HCl Confirm 11/07/24 13:40 Bupivacaine Hcl/Pf 150 Mg/30 Ml Vial Administered 11/07/24 13:41 Dose 150 mg .ROUTE .STK-MED ONE Bupivacaine HCl/Epinephrine Bitart 50 ml 11/07/24 03:48 Bupivacaine Hcl/Epinephrine/Pf 10 Ml Vial SUBDERMAL 11/07/24 03:49 .STK-MED ONE Bupivacaine Liposome Confirm 11/07/24 13:41 Bupivacaine Liposome/Pf 133 Mg/10 Ml Administered 11/07/24 13:42 Dose 133 mg IJ .STK-MED ONE Celecoxib 200 mg 11/07/24 10:23 11/07/24 10:59 Celecoxib 100 Mg Capsule PO 11/07/24 10:24 200 mg STAT ONE Administration Dexamethasone 8 mg 11/07/24 10:22 11/07/24 10:59 Dexamethasone 4 Mg Tablet PO 11/07/24 10:23 8 mg STAT ONE Administration Dexamethasone Sodium Phosphate Confirm 11/07/24 13:43 Dexamethasone Sodium Phosphate 4 Mg/Ml Vial Administered 11/07/24 13:44 Dose 4 mg .ROUTE .STK-MED ONE Dexmedetomidine/Sodium Chloride Confirm 11/07/24 13:43 Dexmedetomidine In 0.9 % Nacl 80 Mcg/20 Ml Vial Administered 11/07/24 13:44 Dose 80 mcg IV .STK-MED ONE Ephedrine Sulfate Confirm 11/07/24 14:13 Ephedrine Sulfate 50 Mg/Ml Administered 11/07/24 14:14 Dose 50 mg .ROUTE .STK-MED ONE Famotidine 20 mg 11/07/24 10:23 11/07/24 11:00 Famotidine 20 Mg Tablet PO 11/07/24 10:24 20 mg STAT ONE Administration Fentanyl Citrate Confirm 11/07/24 13:43 Fentanyl Citrate 100 Mcg/2 Ml* Vial Administered 11/07/24 13:44 Dose 100 mcg .ROUTE .STK-MED ONE Fentanyl Citrate Confirm 11/07/24 14:35 Fentanyl Citrate 100 Mcg/2 Ml* Vial Administered 11/07/24 14:36 Dose 100 mcg .ROUTE .STK-MED ONE Fentanyl Citrate Confirm 11/07/24 17:56 Fentanyl Citrate 100 Mcg/2 Ml* Vial Administered 11/07/24 17:57 Dose 100 mcg .ROUTE .STK-MED ONE Gabapentin 600 mg 11/07/24 10:22 11/07/24 10:59 Gabapentin 300 Mg Capsule PO 11/07/24 10:23 600 mg STAT ONE Administration Heparin Sodium (Beef Lung) 5,000 unit 11/07/24 06:00 11/07/24 09:17 Heparin 5000 Units/0.5 Ml 5,000 Unit/0.5 Ml Syr SQ 12/07/24 05:59 Not Given Q8HT LAST Sodium Chloride 1,000 mls @ 999 mls/hr 11/07/24 00:53 11/07/24 03:06 Sodium Chloride 0.9% 1000 Ml IV 11/07/24 01:53 Infused .Q1H1M STA Infusion Sodium Chloride Confirm 11/07/24 01:54 Sodium Chloride 0.9% 1000 Ml Administered 11/07/24 01:55 Dose 1,000 mls @ ud .ROUTE .STK-MED ONE Vancomycin HCl 1 gm in 200 mls @ 200 mls/hr 11/07/24 12:35 11/07/24 12:37 Vancomycin 1 Gram/200 Ml Bag IV 11/07/24 13:34 200 mls/hr ONCALLTOOR ONE Administration Lactated Ringer's Confirm 11/07/24 15:05 Lactated Ringers Administered 11/07/24 15:06 Dose 1,000 mls @ ud IV .STK-MED ONE Vancomycin HCl 1 gm in 200 mls @ 200 mls/hr 11/08/24 08:15 11/08/24 08:10 Vancomycin 1 Gram/200 Ml Bag IV 11/08/24 09:14 200 mls/hr ONCE ONE Administration Ketamine HCl Confirm 11/07/24 14:36 Ketamine Hcl 50 Mg/Ml Administered 11/07/24 14:37 Dose 50 mg .ROUTE .STK-MED ONE Ketorolac Tromethamine Confirm 11/07/24 01:15 Ketorolac Tromethamine 30 Mg/Ml Inj Administered 11/07/24 01:16 Dose 30 mg .ROUTE .STK-MED ONE Ketorolac Tromethamine 30 mg 11/07/24 02:45 11/07/24 00:58 Ketorolac Tromethamine 30 Mg/Ml Inj IM 11/07/24 02:46 30 mg STAT ONE Administration Lidocaine HCl Confirm 11/07/24 13:41 Lidocaine Hcl 4 Ml Solution (Lta Kit) Administered 11/07/24 13:42 Dose 4 ml TP .STK-MED ONE Lidocaine HCl Confirm 11/07/24 13:43 Lidocaine - Mpf 2% 5 Ml Vial Administered 11/07/24 13:44 Dose 5 ml .ROUTE .STK-MED ONE Midazolam HCl Confirm 11/07/24 13:43 Midazolam Hcl 2 Mg/2 Ml Vial Administered 11/07/24 13:44 Dose 2 mg .ROUTE .STK-MED ONE Morphine Sulfate 4 mg 11/07/24 00:53 11/07/24 01:53 Morphine Sulfate 4 Mg/Ml Injection IV 11/07/24 00:54 Not Given STAT ONE Ondansetron HCl 4 mg 11/07/24 00:53 11/07/24 02:01 Ondansetron Hcl 4 Mg/2 Ml Vial IV 11/07/24 00:54 Not Given STAT ONE Ondansetron HCl Confirm 11/07/24 01:54 Ondansetron Hcl 4 Mg/2 Ml Vial Administered 11/07/24 01:55 Dose 4 mg .ROUTE .STK-MED ONE Ondansetron HCl Confirm 11/07/24 13:43 Ondansetron Hcl 4 Mg/2 Ml Vial Administered 11/07/24 13:44 Dose 4 mg .ROUTE .STK-MED ONE Ondansetron HCl Confirm 11/07/24 17:55 Ondansetron Hcl 4 Mg/2 Ml Vial Administered 11/07/24 17:56 Dose 4 mg .ROUTE .STK-MED ONE Phenylephrine HCl Confirm 11/07/24 14:23 Phenylephrine 10 Mg/Ml Vial Administered 11/07/24 14:24 Dose 10 mg .ROUTE .STK-MED ONE Propofol Confirm 11/07/24 13:44 Propofol 200 Mg/20 Ml Vial Administered 11/07/24 13:45 Dose 200 mg IV .STK-MED ONE Rocuronium [place] Confirm 11/07/24 13:43 Rocuronium [place] 50 Mg/5 Ml Vial Administered 11/07/24 13:44 Dose 50 mg IV .STK-MED ONE Sugammadex Sodium Confirm 11/07/24 13:43 Sugammadex Sodium 200 Mg/2 Ml Vial Administered 11/07/24 13:44 Dose 200 mg IV .STK-MED ONE Multi-Disciplinary Progress Notes: Multi-Disciplinary Progress Notes 11/08/24 06:11 Respiratory Note by Sulaiman Hooper PT NOW ON SCO FOR INCENTIVE SPIROMETRY. PT FELT COMFORTABLE AND DEMONSTRATED UNDERSTANDING WITH DEVICE. Initialized on 11/08/24 06:11 - END OF NOTE Assessment/Plan (1) Fracture, proximal femur Current Visit: Yes Status: Acute Assessment & Plan: - POD day #2 ORIF Left femur - Narcotic pain control PRN - Will need yaw out in 2 weeks, and 4 week f/u with ortho for repeat XR - Start ASA daily per ortho - Antbx per ortho - Ortho note reviewed and agree with plan of care - PT eval and treat - D/C tomorrow per ortho - IS Code(s): S72.009A - FRACTURE OF UNSP PART OF NECK OF UNSP FEMUR, INIT (2) Right knee pain Current Visit: Yes Status: Acute Assessment & Plan: - XR reviewed - Ice pack - PRN narcotic pain meds Code(s): M25.561 - PAIN IN RIGHT KNEE (3) Fall Current Visit: Yes Status: Acute Qualifiers: Encounter type: initial encounter Qualified Code(s): W19.XXXA - Unspecified fall, initial encounter Assessment & Plan: - Accidental per pt - Pt eval - radiology results reviewed - CBC, CMP reviewed 11/07 - Refused labs today Code(s): W19.XXXA - UNSPECIFIED FALL, INITIAL ENCOUNTER (4) Tick bite Current Visit: Yes Status: Acute Qualifiers: Encounter type: initial encounter Assessment & Plan: - Multiple bites per pt - Doxycycline - Testing for lyme disease and griffin mountain spotted fever 11/07 - Pt refused labs today - No overnight fever - + fever yesterday Code(s): W57.XXXA - BIT/STUNG BY NONVENOM INSECT & OTH NONVENOM ARTHROPODS, INIT (5) Leukocytosis Current Visit: Yes Status: Acute Assessment & Plan: - WBC 17.2 on 11/07 - Refused labs today - Reports recent multiple tick bites and recent tooth infection - Does not appear to have a tooth infection on assessment - BC x2 pending - + temp yesterday- none overnight or today VTE: SCD's Next of KIN: NONE D/C plan: Tomorrow Code status: Full Code(s): D72.829 - ELEVATED WHITE BLOOD CELL COUNT, UNSPECIFIED
[2024-11-08] MEDS ORDERED: D5w 100ML Mini Bag 100 ML 100 ML IV ONE (10:17)
--- NOTE | 2024-11-08 10:23 | XRAY ---
Indication: residential placement. Comparison: None Portable chest inflated and clear. Heart and mediastinal structures within normal limits with incidental 1 cm distal right paratracheal calcified node. Bony thoracic intact with osteopenia, degenerative changes, and mild levoscoliosis. Impression: Nonacute chest with chronic findings.
[2024-11-08] MEDS: ECOTRIN 81 MG PO SCH (10:25)
--- NOTE | 2024-11-08 12:37 | XRAY ---
2 minutes and 10 seconds were used in surgery for a left hip ORIF.
[2024-11-08] MEDS ORDERED: MOTRIN 600 MG PO PRN (14:08)
[2024-11-08] MEDS ORDERED: TYLENOL 325 MG PO PRN (14:08)
--- NOTE | 2024-11-08 15:58 | OP ---
SURGERY DATE/TIME: 11/07/2024 [id number] PREOPERATIVE DIAGNOSIS: Fracture left proximal femur. POSTOPERATIVE DIAGNOSIS: Fracture left proximal femur. PROCEDURE: Open reduction and internal fixation of fracture left proximal femur. SURGEON: Clarence Mijares MD INDICATIONS: This patient was brought into the emergency room early this morning after an injury. His primary complaint was left hip although he had several other minor areas of body pain on the arms and legs. In the emergency room he had multiple x-rays obtained, but the only fracture seen was in the left hip area. This was said over the phone to be an intertrochanteric fracture; however, the x-ray showed a large displaced greater trochanteric fracture. We recommended a CT scan which showed fracture of the upper portion of the femoral neck as well as an acetabular fracture of the anterior wall with minimal displacement. We recommended ORIF of the hip fracture and discussed different strategies for fixating this unusual fracture pattern. He had a long vertical fracture line basically through the pyriformis fossa extending distally, creating a large displaced greater trochanteric fragment with a femoral neck component as well. We recommended plate fixation with claw fixation over the greater trochanter to better stabilize the trochanteric fragment. Consent was obtained after discussion of procedure, risks, benefits, and options. DESCRIPTION OF PROCEDURE AND FINDINGS: Patient was seen preoperatively, and the operative limb was identified and initialed. The plan was reviewed. He was given IV vancomycin 1 g. He was then taken to the operating room and placed under general anesthesia. He was moved onto the fracture table. There was a padded perineal post that he was pulled down against. We placed the left leg in a traction boot. We flexed the right knee and hip and placed the right calf on a padded leg rest. C-arm was then able to show images of the left hip. By externally rotating the left lower extremity we were able to improve the reduction. This was consistent with the posterior displacement of the greater trochanteric fragment. We then performed sterile prep and drape. A lateral incision was made through skin, fascia jie, and vastus lateralis. We identified the fracture site. With combination of traction and rotation, we were able to achieve a reduction which we held with a clamp. We then passed 2 cables around the fracture and provisionally tightened the cables. While these cables were in place we drilled a guidepin into the femoral head utilizing a 135-degree guide. We measured the pin and then set the reamer. We reamed up into the femoral head to accommodate a 105 mm screw. We tapped this hole and then inserted the lag screw. When we advanced the 135-degree plate down, we found that the plate did not fit against the lateral femur, so we removed the 135-degree plate leaving the screw in place. We placed 2 interfragmentary screws to the upper femur to provisionally hold the fragments reduced, and we then loosened the cables. We then took a 130-degree plate and advanced it over the lag screw. We were able to fully impact this plate against the femur, secured with a clamp, and then tighten down the cables over the plate. With those in place, we inserted additional cortical screws through the plate and compressed the fracture. At this point, we had stable fixation of the trochanteric fragment but to resist proximal displacement forces and to minimize the risk of fragmentation, we placed a trochanteric claw over the tip of the trochanter and secured it with cables around the medial neck. Once these were tensioned and locked, we cut all cables and performed pulsatile lavage. Estimated blood loss 350 mL. Wound was closed then in layers. We closed the vastus lateralis fascia with running 0 Vicryl. We then closed the IT band with 0 Vicryl interrupted sutures. We then closed the subcutaneous tissue with 2-0 Vicryl, and the skin incision was closed with yaw. Patient was then taken to recovery room in stable condition.
[2024-11-08] MEDS: Restoril 15 MG PO PRN (21:08)
[2024-11-09] MEDS: TORAdol 30 mg Injection IV ONE (02:01)
[2024-11-09 05:40] LABS: Hematocrit 28.6 % (40.1-51.0); Hemoglobin 9.5 g/dL (13.7-17.5); Mean Cell Volume 97.9 fL (79.0-92.2); Mean Corpuscular Hemoglobin 32.5 pg (25.7-32.2); Mean Corpuscular Hgb Concent. 33.2 g/dL (32.3-36.5); Mean Platelet Volume 11.3 fL (9.4-12.4); Platelet Count 200 x10^3/uL (163-337); Red Blood Count 2.92 x10^6/uL (4.63-6.08); Red Cell Distribution Width 12.8 % (11.6-14.4); White Blood Count 9.5 x10^3/uL (4.23-9.07)
[2024-11-09 06:04] LABS: ALBUMIN 3.2 g/dL (3.5-5.0); ANION GAP 11.6 MEQ/L (5-15); BILIRUBIN,TOTAL 0.5 mg/dL (0.2-1.3); Calcium 8.1 mg/dL (8.4-10.2); Creatinine 1 0.62 mg/dL (0.66-1.25); EST GLOMERULAR FILTRATION RATE 112.9 ML/MIN; Potassium 3.4 mmol/L (3.5-5.1); Total Protein 5.5 g/dL (6.3-8.2)
[2024-11-09 07:57] VITALS: RESP 16
[2024-11-09] MEDS: Klor Con PO ONE (08:31)
[2024-11-09] MEDS: NORCO 10-325 MG PO PRN (08:38)
[2024-11-09] MEDS: Ecotrin 325 MG PO SCH (09:38)
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
--- NOTE | 2024-11-09 11:39 | PCM.DS ---
Discharge Summary Date of Admission: 11/07/24 03:47 Date of Discharge: 11/09/24 Admitting Physician: JEROME ROSE MD Primary Care Provider: PREET ALFARO Allergies Allergies Penicillins Allergy (Verified 11/07/24 01:27) Hospital Summary - Hospital Course Hospital Course: 11/08/24 The patient is a 54-year-old male with a history of anxiety, depression, multiple prior fractures due to trauma, and prediabetes who presented to the ED on 11/07/24 following a fall. He reported being tripped by his dog and falling approximately 46 feet onto stone, landing on his left leg. He initially presented with severe left hip pain and, after receiving Toradol, also noted discomfort in his right ankle, right knee, and right elbow. However, he has no pain with movement in the right leg or elbow; pain is localized to the left hip with any motion. He is not currently on any medications and prefers to avoid opioids. He has a history of prediabetes but reports significant weight loss since diagnosis. He smokes one pack per day and declined nicotine replacement. Family history is notable for diabetes and heart disease. The patient refused labs today, stating he does not like being poked. He had an elevated WBC and fever yesterday, with a recent ER visit to [facility] for a suspected tooth infection. While no active dental infection was noted, he does have dental caries. He also mentioned recent mushroom hunting with multiple tick exposures. He was started on doxycycline and is currently receiving Vancomycin and Vibramycin after missing a dose yesterday, which nursing staff is addressing with catch-up dosing. Today, his pain is well controlled, and he has mild right knee edema, but no other acute concerns. He will work with physical therapy, and per orthopedics, he is to follow up in two weeks for staple removal and again in four weeks for repeat imaging. He will also begin daily aspirin as part of his ongoing care plan. 11/09/24 Pt resting in bed. He is scheduled to got to the rehab facility today. Ortho ok with DC plan. Pt to follow up as scheduled. He denies any further concerns at this time. Lyme test negative. Griffin mountain spotted fever testing pending. Will continue doxycycline and follow results of testing OP. - Vitals & Intake/Output Vital Signs: Vital Signs Temperature 97.6 F 11/09/24 07:56 Pulse Rate 76 11/09/24 07:56 Respiratory Rate 16 11/09/24 07:56 Blood Pressure 124/65 11/09/24 07:56 O2 Sat by Pulse Oximetry 94 L 11/09/24 07:56 Intake & Output: Intake & Output 11/06/24 11/07/24 11/08/24 11/09/24 11:59 11:59 11:59 11:59 Intake Total 0 720 2086 Output Total 1550 1450 Balance 0 -830 636 Weight 68.8 kg 68.8 kg - Lab Result Diagrams: 11/09/24 04:15 11/09/24 04:15 Lab Results-Last 24 Hrs: Lab Results-Last 24 Hours 11/07/24 11/09/24 11/09/24 Range/Units 11:22 04:15 04:15 WBC 9.5 H (4.23-9.07) x10^3/uL RBC 2.92 L (4.63-6.08) x10^6/uL Hgb 9.5 L D (13.7-17.5) g/dL Hct 28.6 L (40.1-51.0) % MCV 97.9 H (79.0-92.2) fL MCH 32.5 H (25.7-32.2) pg MCHC 33.2 (32.3-36.5) g/dL RDW 12.8 (11.6-14.4) % Plt Count 200 (163-337) x10^3/uL MPV 11.3 (9.4-12.4) fL Sodium 136 (135-145) mmol/L Potassium 3.4 L (3.5-5.1) mmol/L Chloride 105 (98-107) mmol/L Carbon Dioxide 23 (22-30) mmol/L Anion Gap 11.6 (5-15) MEQ/L BUN 17 (9-20) mg/dL Creatinine 0.62 L (0.66-1.25) mg/dL Estimated GFR 112.9 ML/MIN Glucose 141 H (74-106) mg/dL Calcium 8.1 L (8.4-10.2) mg/dL Total Bilirubin 0.50 (0.2-1.3) mg/dL AST 97 H (17-59) U/L ALT 40 (0-50) U/L Alkaline Phosphatase 49 (38-126) U/L Serum Total Protein 5.5 L (6.3-8.2) g/dL Albumin 3.2 L (3.5-5.0) g/dL Lyme Total Antibody Negative (Negative) Micro Results-Entire Visit: Microbiology 11/07/24 11:22 Blood Culture - Preliminary Blood - Radiology Exams Ordered Rad Exams-Entire Visit: Radiology Procedures Category Date Time Status CHEST 1 VIEW (PORTABLE) Urgent Exams 11/08/24 09:56 Completed - Procedures and Test Procedures and Tests throughout Hospitalization: Therapy Orders & Screens 11/07/24 04:28 OT Screen per Nursing Assess ONCE Comment: Protocol Order Physician Instructions: Greater than 3 points order OT Admission Screening Reason For Exam: Triggered on Admission Diagnosis: Proximal femur fracture Open Wound/Cellutlitis/Pressure Ulcers: No Acute Fx/ORIF/Change in wt bearing status: Yes Severe MUSCULOSKELETAL pain: No ADL Dysfunction: No Acute CVA w/Hemiparesis/Hemiplegia: No Decreased Functional Mobility/Strength: No Sprain/Strain: No Acute Post-op Mobility Dysfunction: No Total Points: 5 PT Screen per Nursing Assess ONCE Comment: Protocol Order Physician Instructions: Greater than 3 points order PT Admission Screenin Reason For Exam: Triggered on Admission Diagnosis: Proximal femur fracture Open Wound/Cellutlitis/Pressure Ulcers: No Acute Fx/ORIF/Change in wt bearing status: Yes Severe MUSCULOSKELETAL pain: No ADL Dysfunction: No Acute CVA w/Hemiparesis/Hemiplegia: No Decreased Functional Mobility/Strength: No Sprain/Strain: No Acute Post-op Mobility Dysfunction: No Total Points: 5 11/07/24 18:35 Incentive Spirometry [id number] Comment: Diagnosis: Fall with hip pain 11/07/24 18:36 PT Eval & Treat (MD Order) ONCE Reason for Eval:: POST OP ORIF OF LEFT HIP FRACTURE Diagnosis: Fall with hip pain OT Eval and Treat (MD Order) ONCE Comment: Physician Instructions: Reason For Exam: POST OP ORIF OF LEFT HIP FRACTURE Diagnosis: Fall with hip pain Discharge Exam General Appearance: no apparent distress, alert Neurologic Exam: alert, oriented x 3, cooperative, normal mood/affect, nml cerebellar function, sensation nml, No motor deficits Eye Exam: PERRL, EOMI, eyes nml inspection Ears, Nose, Throat Exam: normal ENT inspection, pharynx normal, moist mucous membranes Neck Exam: normal inspection, non-tender, supple, full range of motion Respiratory Exam: normal breath sounds, lungs clear, No respiratory distress Cardiovascular Exam: regular rate/rhythm, normal heart sounds Gastrointestinal/Abdomen Exam: soft, No tenderness, No mass Male Genitalia Exam: deferred Rectal Exam: deferred Back Exam: normal inspection, normal range of motion, No CVA tenderness, No vertebral tenderness Extremity Exam: normal inspection, normal range of motion, limited range of motion (left hip), tenderness Skin Exam: normal color, warm, dry Wound Assessment: Skin/Wound Assessment Wound/Incision Assessment Start: 11/07/24 17:50 Text: Status: Active Freq: Q6H Protocol: Document 11/09/24 08:00 DS (Rec: 11/09/24 10:05 DS [id number]) Wound/Incision Assessment Left Upper Hip Wound Assessment Shift Assessment Wound Type Incision Wound Stage Non Pressure Wound Dressing Status Dry & Intact Drainage Amount None Wound Photo Photo Taken No Final Diagnosis/Problem List - Final Discharge Diagnosis/Problem (1) Fracture, proximal femur Current Visit: Yes Status: Acute Code(s): S72.009A - FRACTURE OF UNSP PART OF NECK OF UNSP FEMUR, INIT (2) Right knee pain Current Visit: Yes Status: Acute Code(s): M25.561 - PAIN IN RIGHT KNEE (3) Fall Current Visit: Yes Status: Acute Code(s): W19.XXXA - UNSPECIFIED FALL, INITIAL ENCOUNTER (4) Tick bite Current Visit: Yes Status: Acute Code(s): W57.XXXA - BIT/STUNG BY NONVENOM INSECT & OTH NONVENOM ARTHROPODS, INIT (5) Leukocytosis Current Visit: Yes Status: Acute Assessment & Plan: (1) Fracture, proximal femur Current Visit: Yes Status: Acute Assessment & Plan: - POD day #2 ORIF Left femur - Narcotic pain control PRN - Will need yaw out in 2 weeks, and 4 week f/u with ortho for repeat XR - Start ASA daily per ortho - Antbx per ortho - Ortho note reviewed and agree with plan of care - PT eval and treat - D/C tomorrow per ortho - IS 11/09 - D/C to rehab today - CBC, CMP reviewed Code(s): S72.009A - FRACTURE OF UNSP PART OF NECK OF UNSP FEMUR, INIT (2) Right knee pain Current Visit: Yes Status: Acute Assessment & Plan: - XR reviewed - Ice pack - PRN narcotic pain meds Code(s): M25.561 - PAIN IN RIGHT KNEE (3) Fall Current Visit: Yes Status: Acute Qualifiers: Encounter type: initial encounter Qualified Code(s): W19.XXXA - Unspecified fall, initial encounter Assessment & Plan: - Accidental per pt - Pt eval - radiology results reviewed - CBC, CMP reviewed 11/07 - Refused labs today Code(s): W19.XXXA - UNSPECIFIED FALL, INITIAL ENCOUNTER (4) Tick bite Current Visit: Yes Status: Acute Qualifiers: Encounter type: initial encounter Assessment & Plan: - Multiple bites per pt - Doxycycline - Testing for lyme disease and griffin mountain spotted fever 11/07 - Pt refused labs today - No overnight fever - + fever yesterday 11/09 - Lyme test negative - Will follow test for griffin mountain spotted fever OP - Continue Doxycycline OP Code(s): W57.XXXA - BIT/STUNG BY NONVENOM INSECT & OTH NONVENOM ARTHROPODS, INIT (5) Leukocytosis Current Visit: Yes Status: Acute Assessment & Plan: - WBC 17.2 on 11/07 - Refused labs today - Reports recent multiple tick bites and recent tooth infection - Does not appear to have a tooth infection on assessment - BC x2 pending - + temp yesterday- none overnight or today 11/08 - WBC 9.5- improved - BC x1 negative other cancelled Code(s): D72.829 - ELEVATED WHITE BLOOD CELL COUNT, UNSPECIFIED (6) Hypokalemia Current Visit: Yes Status: Acute Assessment & Plan: - K+ 3.1- replaced - Will not recheck as pt does not like labs drawn. - F/U OP Code(s): E87.6 - HYPOKALEMIA - Discharge Discharge Date: 11/09/24 Disposition: Home, Self-Care Condition: Stable Prescriptions: New Aspirin EC 325 mg [Ecotrin 325 MG] 325 mg PO DAILY 30 Days #30 tablet Hydrocodone/Acetaminophen [Argyle 10-325 mg] 1 tablet PO Q6H PRN PRN 3 Days #12 tablet MDD 4 PRN Reason: Pain No Action No Reportable Medications [No Reported Medications] Additional Instructions: Please [facility] Follow up with: HARPREET TRUONG NP [NON-STAFF PHY W/O PRIVILEGES, UNKNOWN] - 11/22/24 10:30 am
[2024-11-09 15:53] VITALS: BP 117/63; PULSE 70; TEMP 97.7
[2024-11-10 08:10] VITALS: O2SAT 96
== END 2024-11-09 18:03 | disposition home or self-care (01) ==
LOC: ED 00:46 → MED SURG 03:47
PROVIDERS: ADMIT Internal Medicine; ATTEND Internal Medicine
DX: S72.002A Fracture of unspecified part of neck of left femur, initial encounter for closed fracture (principal); M25.561 Pain in right knee; W19.XXXA Unspecified fall, initial encounter; W57.XXXA Bitten or stung by nonvenomous insect and other nonvenomous arthropods, initial encounter; D72.829 Elevated white blood cell count, unspecified; E87.6 Hypokalemia; R73.03 Prediabetes; F17.200 Nicotine dependence, unspecified, uncomplicated; E78.5 Hyperlipidemia, unspecified; Z79.899 Other long term (current) drug therapy
CPT/HCPCS: 27244; 36415; 71045; 73502; 73552; 73562; 73700; 76000; 80053; 80307; 81001; 82077; 82947; 83036; 85014; 85018; 85025; 85027; 86618; 87040; 96372; 97110; 97161; 97165; 99285; Q3014; 76937; 99213; C1713; J0666; J1100; J1885; J2250; J2270; J2371; J2405; J2704; J3010; A9270-GY; J3370